=== PATIENT | female | born 1945 | race Caucasian/White ===

== ENCOUNTER → 2021-01-13 09:56 | Outpatient (CLI) | payer OTHER, SELFPAY ==
[2021-01-13 11:02] LABS: COVID19 -Nasal RAPID Negative (Negative)
== END ==
PROVIDERS: Visit Provider Physician Assistant
DX: Z01.812 Encounter for preprocedural laboratory examination (principal); Z20.822 Contact with and (suspected) exposure to COVID-19
CPT/HCPCS: 87635

== ENCOUNTER 2021-01-16 10:15 | Observation (INO) | payer OTHER, SELFPAY ==
[2021-01-15] VITALS (12 sets, daily range): BP systolic 110–160; BP diastolic 49–86; PULSE 63–84; RESP 12–79; TEMP 35.8–36.8; O2SAT 92–99; BMI 34.4
--- NOTE | 2021-01-15 13:42 | DI.RAD.S_ITS ---
PROCEDURE: XR KNEE LT 1TO2V INDICATIONS: post op films TECHNIQUE: 2 view(s) of the knee acquired. COMPARISON: None. FINDINGS: Bones: Patient is status post knee joint arthroplasty. Hardware components are in expected positions. Visualized bony structures are intact. Soft tissues: Overlying postoperative changes are noted. IMPRESSION: Expected appearance post left knee arthroplasty. Dictated by: Aliyah Rolle M.D. on 01/16/2021 at 9:51 Approved by: Aliyah Rolle M.D. on 01/16/2021 at 9:51
[2021-01-15] MEDS: PREGABALIN 75 MG CAPSULE PO (13:53)
[2021-01-15] MEDS: LACTATED RINGERS 1,000 ML 42 ML IV (13:53)
[2021-01-15] MEDS: ACETAMINOPHEN 325 MG TABLET 975 MG PO (13:53)
[2021-01-15] MEDS: CELECOXIB 200 MG CAPSULE PO (13:53)
--- NOTE | 2021-01-15 14:10 | PM.PREOP ---
Pre-operative Note COVID-19 COVID-19 status: Negative Result date/Date tested (Pos, Neg/Pending): 01/13/21 Interval Note History & Physical reviewed/Exam performed by Physician: Yes Changes to H&P: No H&P completed within 30 days and has changed as indicated here:: Plan for L TKA
[2021-01-15] MEDS: CEFAZOLIN 2 GM/100 ML FROZ.PIGGY IV ×2 (15:15→23:58)
[2021-01-15] MEDS: TRANEXAMIC ACID 1,000 MG VIAL 1000 MG INJ (15:17)
--- NOTE | 2021-01-15 15:32 | SUR.OPER ---
Supine on padded OR bed. Pillow under head, arms secured on padded armboards <90 degree abduction. Safety belt across torso. Non-operative leg secured with tape over blanket over lower leg. Operative leg positioned on foam leg ponce per surgeon. Foam padded brace at thigh of operative leg.
[2021-01-15] MEDS: SODIUM CHLORIDE IRRIG SOLUTION 250 ML, POVIDONE-IODINE SPONGE STICKS 1 APPLIC IRR (15:38)
[2021-01-15] MEDS: ROPIVACAINE 0.5% PF 5 MG/ML 20ML VIAL 60 ML INJ (15:39)
[2021-01-15] MEDS: KETOROLAC 30 MG/ML VIAL IV (15:41)
[2021-01-15] MEDS: MORPHINE 4 MG/ML INJ INJ (15:41)
--- NOTE | 2021-01-15 16:55 | PM.OP.1 ---
Operative Date/Time/Diagnoses Date of procedure: 01/15/21 Time of procedure: 16:55 Pre-op diagnosis: Left knee osteoarthritis Post-op diagnosis: same Procedure & Clinicians Procedure: Left total knee arthroplasty Same procedure as scheduled: Yes Indications: Advanced osteoarthritis of the left knee resistant to further conservative measures Surgeon: Good Garcia Clothes Ironer: Javier Gu Anesthesia Type: General and Spinal Operative Notes Findings: Left knee osteoarthritis with varus angulation non correctable on exam Closure Type: primary Specimen(s): none sent Prosthetic devices, grafts, tissues, transplants, or devices: Gil and nephew size 3 left BCS femoral component Gil and nephew size 2 left Journey tibial base plate Left size 1-2 9 mm thick Journey II BCS polyethylene 29 mm oval Amy 2 patellar button Estimated Blood Loss (mL): 200 Tourniquet time (min): 55 Procedure in detail: Patient was met in the preoperative holding area where the site and side of surgery were marked by . Informed consent had been reviewed in clinic but was also reviewed in the preoperative holding area. All last minute questions were answered. Patient was then brought back to the operating room where she received a spinal anesthetic. She was then placed supine on the operating room table and induced under general anesthesia. A nonsterile tourniquet was then placed on left thigh and left lower extremity was then prepped and draped in normal sterile fashion. A surgical time-out was performed verifying the site and side of surgery as well as the name of the patient. A an Esmarch was then used to exsanguinate the left lower extremity the tourniquet was inflated 250 mm of mercury. A longitudinal incision over the anterior aspect of the knee was made using 10. Blade. A new 10. Blade was then used to elevate medial lateral flaps. The medial parapatellar arthrotomy was then marked out and made with a 10. Blade. Hoffa's fat pad was removed this point as well as the lateral meniscus. A medial peel was then performed. The medial peel was quite extensive as she has overall varus alignment that was non correctable on exam. Whitesides line was also marked. ACL remnant was removed. The entry site for the intramedullary drill was then marked on the femur and tibia respectively. The opening drill was then used to gain access the femoral and tibial canals. Intramedullary jerome placed inside the femoral canal and the distal femoral cutting guide was placed and cut in the neutral slot. The intramedullary jerome was then placed inside the tibia and the jig was then placed on the outrigger for the intramedullary jerome. This was initially pinned in place and then varus valgus alignment was checked with the drop jerome and the 3rd pin was then placed. Tibia cut was then made taking care to preserve the MCL and the patellar tendon. The tibial cut was then removed along with the medial meniscus. Extension block was then used in a knee was able to get to full extension it with a 9 mm block. A gap retail pharmacy merchandiser was then used and the femur sized to a size 3. The drill holes for the 5 in 1 cutting block were then drilled through the gap retail pharmacy merchandiser. This was compared to Whitesides line which showed external rotation. The 5 in 1 cutting block was then placed for a size 3 femur. The 5 cuts were made sequentially. A size 3 left femur CR trial was then placed on the femur. And a size 2 tibial base plate. The knee was balanced in extension however in flexion the PCL was quite tight causing tibial base plate lift-off. At this point it was determined that we would defer to the CS to get rid of the type PCL. The trial was then removed the size left 5 femur was replaced with the BCS component. We then trialed again with a 9 mm thick polyethylene for B CS and this had excellent range of motion as well as no tibial base plate lift-off and was balanced in varus valgus from extension through flexion. The tibial base plate was then marked using floating technique. Trial was then removed the tibial base plate was then replaced on the tibia and drilled and punched. Bony fragments were then placed inside the tibial canal as well as the femoral canal. Local anesthetic was then infiltrated in the periarticular soft tissues including the back of the knee. Pulse lavage was then used to thoroughly irrigate the cut surfaces of the bone. Cement was then mixed. Cement was then finger packed onto the cut surface of the tibia as well as the keel hole. Cement was placed on the undersurface of the tibial base plate. This was then malleted into place and all excess cement was removed. Stem was then finger packed onto the cut surface of the femur with exception of the posterior condylar cut. Cement was placed on the feet of the femoral component this was malleted into place as well. All excess cement was removed. A size 9 mm thick PS trial was then placed in the was brought into full extension ankle held in internal rotation. Cement was then finger packed on the cut surface of the patella and cement was placed between the patellar pegs on the button. This was then clamped in place and excess cement was removed. At this point Betadine solution was placed into the wound the tourniquet was let down. Betadine slept for several minutes before being pulse lavage away with copious normal saline. We then allowed the cement to fully cure before ranging the knee. After final trial of range of motion we selected a size 1-2 left B CS polyethylene. We thoroughly investigated the rest the knee there was no excess cement or bony fragments. The polyethylene was then placed making sure the medial lateral locking mechanisms were well engaged. The medial parapatellar arthrotomy was then closed using 1. Vicryl in interrupted fashion followed by running Quill suture followed by 2-0 Vicryl in the subcutaneous layer followed by running 3-0 Stratafix in subcuticular followed by Dermabond and Aquacel dressing. Complications: none Post-operative Condition: stable Disposition: PACU Plan for aftercare: 24 hours post-op abx, ASA 81mg BID for 6 weeks for DVT prophylaxis, WBAT LLE
[2021-01-15] MEDS: LACTATED RINGERS 1,000 ML 100 ML IV (18:10)
[2021-01-15] MEDS: IBUPROFEN 400 MG TABLET PO ×2 (18:11→20:42)
[2021-01-15] MEDS: SIMVASTATIN 20 MG TABLET PO (20:42)
[2021-01-15] MEDS: DOCUSATE 100 MG CAPSULE PO (20:43)
[2021-01-15] MEDS: ASPIRIN EC 81 MG TABLET PO (20:43)
[2021-01-15] MEDS: OXYCODONE IR 5 MG TABLET PO ×2 (20:43→23:58)
[2021-01-15] MEDS: ACETAMINOPHEN 325 MG TABLET 650 MG PO (20:43)
[2021-01-16] MEDS: OXYCODONE IR 10 MG TABLET PO ×4 (02:45→12:21)
[2021-01-16] MEDS: LACTATED RINGERS 1,000 ML 100 ML IV (04:05)
[2021-01-16 05:21] VITALS: BP 122/70; PULSE 77; RESP 17; TEMP 36.6; O2SAT 97
--- NOTE | 2021-01-16 05:41 | PC.NURSE ---
pt alert and oriented x4. Pleasant. 1pa upto bsc with fww. Pt voiding without issues. CMS intact. Pain controlled with ordered oxycodone. Pt has no complaints
[2021-01-16] MEDS: IBUPROFEN 400 MG TABLET PO ×4 (06:07→12:20)
[2021-01-16] MEDS: CEFAZOLIN 2 GM/100 ML FROZ.PIGGY IV (06:08)
[2021-01-16 07:30] VITALS: BP 122/63; PULSE 55; RESP 14; TEMP 35.8; O2SAT 100
[2021-01-16] MEDS: ASPIRIN EC 81 MG TABLET PO (08:06)
[2021-01-16] MEDS: DOCUSATE 100 MG CAPSULE PO (08:06)
[2021-01-16] MEDS: ACETAMINOPHEN 325 MG TABLET 650 MG PO (08:07)
[2021-01-16 08:32] LABS: Hematocrit 38.2 % (36-46); Hemoglobin 12.3 g/dL (12.0-16.0)
--- NOTE | 2021-01-16 10:33 | PT.IIE ---
Current Diagnoses Unilateral primary osteoarthritis, left knee (01/16/21) Surgery Performed Operation Date: 01/15/21 13:45 Actual Procedures p Total Knee Arthroplasty(Left) - Good Garcia MD Surgical History (Last Updated 01/13/21 @ 16:08 by Tanna Adame, RN) H/O bilateral cataract extraction History of appendectomy History of arthroscopic knee surgery History of History of tonsillectomy and adenoidectomy History of total hysterectomy Medical History (Last Updated 01/13/21 @ 16:07 by Tanna Adame, RN) Bilateral knee pain Headache, migraine Macular degeneration Obesity Osteoporosis Primary osteoarthritis of left knee Physical Therapy Inpatient Evaluation/Re-Eval M1 PT/OT-IP Prior Functional Status Start: 01/16/21 09:20 Freq: NEEDED Status: Active Protocol: Document 01/16/21 10:33 DLM (Rec: 01/16/21 12:40 DLM [id number]) Medical Review Prior Functional Status Medical History Reviewed Yes Diet/Fluid Consistency Regular Communication WNL Mobility and Gait Independent with 4WW, uses walker to manage her bilateral knee pain, has a fWW at home but it is too tall for her ( got it from a friend) Activities of Daily Living and IADL's Independent, walk- in shower which she uses in standing, okay getting off standard toilet, has taller bed, built in shower seat is very small and low so she does not plan to use them Social History Household Members spouse Living Arrangements House Number of Floors (Floors) One Floor Number of Stairs To Enter/Railing? 4 with bilateral rails, uses step-to pattern before surgery due to knee pain Home Environment Standard Height Toilet,Walk in Shower,Built-In Shower Seat Home Equipment Four Wheel Walker,Straight Cane Employment Status Retired M2 PT-IP Current Condition Start: 01/16/21 09:20 Freq: NEEDED Status: Active Protocol: Document 01/16/21 10:33 DLM (Rec: 01/16/21 12:40 DLM [id number]) Physical Therapy Current Condition Current Condition Evaluation Date 01/16/21 Treatment Diagnosis left TKA, impaired gait Onset Date 01/15/21 Weight Bearing Status Weight Bearing Status Weight Bear as Tolerated M3 PT-IP Subjective Start: 01/16/21 09:20 Freq: NEEDED Status: Active Protocol: Document 01/16/21 10:33 DLM (Rec: 01/16/21 12:40 [facility] [id number]) Subjective Physical Therapy Visit Type Type Initial Evaluation Visit Start Time 09:45 Visit Stop Time 10:33 Total Visit Minutes 48 Number of TABLE HAND Visits 0 Physical Therapy Visit Comments Patient Comments she likes the FWW but is not sure where to get one for home Patient Goals she wants to discharge home Therapy Pain Assessment Pain When Pain Assessed During Mobility Pain Present Pain Present Pain Reported Location left knee Intensity 5 Scale Used Numeric (0 - 10) Description Aching Pain Behaviors Facial Grimacing,Guarding Pain Management Techniques Apply Cold,Elevation M4 PT-IP Mobility and Gait Start: 01/16/21 09:20 Freq: NEEDED Status: Active Protocol: Document 01/16/21 10:33 DLM (Rec: 01/16/21 12:40 [facility] [id number]) PT-Bed Mobility Assessment Supine to Sit Supine to Sit Standby Assistance Scooting Scooting to Edge of Bed Independent PT-Transfer Assessment Sit to and From Stand Sit to and from Stand Standby Assistance Equipment Transfer Assistive Device Gait Belt,Front Wheeled Walker Transfers Transfer Destination Chair Transfer Technique Stand Step Pivot Transfer Ability Level of Assist Standby Assistance,Use of Upper Extremities Comments Mobility Comments pt up to recliner Gait Assessment Gait Gait Assistance Required: Standby Assistance Distance (Feet) 20 Assistive Devices Assistive Device Gait Belt,Front Wheeled Walker Gait Deviations General Gait Pattern Antalgic Factors Limiting Gait Function Factors Limiting Gait Function Decreased Activity Tolerance, Decreased Strength,Limited Range of Motion,Pain Comments Gait Comments two trials of gait with seated rest breaks between them, educated pt in safe post-op gait pattern Stair Climbing Assessment Comments Stair Climbing Comments verbally reviewed stair technique PT-Balance Assessment Sitting Balance and Reactions Static Sitting Balance Ability Normal Dynamic Sitting Balance Ability Normal Standing Balance and Reactions Static Standing Balance Ability Good Dynamic Standing Balance Ability Good Device Used FWW M5 PT-IP Objective Assessments Start: 01/16/21 09:20 Freq: NEEDED Status: Active Protocol: Document 01/16/21 10:33 DLM (Rec: 01/16/21 12:40 [facility] [id number]) Orientation Orientation/Cognition Level of Alertness Alert Orientation Name,Age,Birthday,Month,Date, Year,Day of Week,Place, Situation Language Function Ability No Deficits Noted Safety Awareness Understands Safety Issues Memory Description No Deficits Noted Gross Range of Motion Upper Extremity ROM Assessment Within Functional Limits Lower Extremity ROM Assessment Left Impaired Impairments knee 0-80 degrees with pain, hx of pain in right knee but functional at this time Strength Upper Extremity Strength Assessment Within Functional Limits Lower Extremity Strength Assessment Left Impaired Hip SLR 2+/5 Knee 3-/5 Ankle DF 5/5 Comments Strength Comments pain left knee post-op, shows good quad set on left, poor tolerance for heel slides today, tolerated knee flexion better seated Coordination Assessment Gross Coordination Gross Coordination WNL Sensation Assessment Sensation Gross Sensation WNL Comments Sensation Comments nitin bandage on left knee so incisional area not tested Muscle Tone Muscle Tone WNL Yes M6 PT-IP Treatment Start: 01/16/21 09:20 Freq: NEEDED Status: Active Protocol: Document 01/16/21 10:33 DLM (Rec: 01/16/21 12:40 DLM [id number]) Physical Therapy Treatment Exercises Exercises Ankle Pumps,Quad Sets,Heel Slides,Seated Knee Flexion/ Extension Education Education Provided Post-Op Packet,Safety Equipment Issued Equipment Type and Company pt has her 4WW at the [facility] M7 PT-IP Assessment and Plan Start: 01/16/21 09:20 Freq: NEEDED Status: Active Protocol: Document 01/16/21 10:33 DLM (Rec: 01/16/21 12:40 DLM [id number]) PT Summary Assessment and Plan Potential Rehabilitation Potential Good Status of Condition at Evaluation Evolving Summary Impairments Pain,ROM,Strength,Balance,Bed Mobility,Transfers,Gait, Activity Tolerance Assessment Summary Jane is post-op day one of left TKA. She tolerated activity well with no light- headedness and no nausea. She is up to recliner and ambulated in the room She has 3-4 steps to enter her house. She reports her Spouse will be able to assist her at discharge. She anticipates she will need a fWW for home use post-op. Will plan one more visit after lunch with possible discharge home this afternoon. Goals Bed Mobility Goal Independent Transfer Goal Independent,Front Wheeled Walker Gait Goal Independent,Front Wheel Walker Gait Distance 100 feet Other Goals Up and down 3-4 steps with bilateral rails and SBA Days to Meet Goals 1 Frequency of Treatment Frequency Of Treatment Twice a Day Treatment Plan Physical Therapy Treatment Plan Bed Mobility Training,Transfer Training,Gait Training, Therapeutic Exercise,Balance Retraining,Post Op Education, Discharge Planning,Hot or Cold Pack,Neuromuscular Re-ed Recommendations To Nursing Amount of Assist Needed Standby Assistance Discharge Recommendations PT Discharge Recommendations Home with Assistance, Outpatient PT Other Discharge Recommendations she has out-pt PT scheduled after discharge to start in about a week Transportation Needs at Discharge Private Vehicle
[2021-01-16 11:15] VITALS: BP 140/72; PULSE 58; RESP 16; TEMP 36; O2SAT 99
--- NOTE | 2021-01-16 12:01 | PC.NURSE ---
Patient moving well with physical therapy, she will do stairs later and then be discharged home if all goes well. She has an aquacel with nitin wrap in place, cms wnl and ppx2.
--- NOTE | 2021-01-16 12:02 | PM.DS.1 ---
History of Present Illness History of Present Illness Date Patient Seen: 01/16/21 Time Patient Seen: 12:03 Chief complaint: LEFT TKA *OPB* Narrative: Please refer to previously documented HPI and chart. Discharge Providers Provider Date of admission: 01/16/21 10:15 Discharge Date: 01/16/21 Primary care physician: Bonnie Burkett MD Consults: 01/13/21 16:33 Consult to Pastoral Services Routine Comment: Mumtaz 01/15/21 13:42 Consult to Anesthesiology Routine Comment: Consulting Provider: Anesthesiologist Reason for consultation: Regional block for post operative pain control 01/15/21 17:59 Consult to Discharge Planning Routine Comment: Consult to Physical Therapy Evaluate & Treat Comment: Physician Instructions: postop TKA protocol Consult to Respiratory Therapy Evaluate & Treat Comment: Physician Instructions: Evaluate and treat Discharge provider: Javier Gu PA-C Summary Hospital Course Discharge Diagnosis: Left knee osteoarthritis Status post left knee total arthroplasty Hospital Course: 76-year-old female with the above-listed diagnoses was consented for the procedure above as indicated and presented to the OR undergoing said procedure without difficulty or complication then admitted to the hospital for rehabilitation having convalesced appropriately was stable for discharge safely and verbalized understanding postoperative care instructions as well as agreed to plan for follow-up evaluation and care as needed. Status at Discharge Cognitive/behavioral status at discharge: oriented Functional status at discharge: uses cane/walker Overall status at discharge: patient is progressing back to baseline Time Spent with Patient Time spent: Less than 30 minutes Exam Vital Signs (past 8 hours): - 01/16/21 05:21 01/16/21 07:30 01/16/21 11:15 Temperature 97.8 F 96.4 F L 96.8 F L Pulse Rate 77 55 L 58 L Respiratory Rate 17 14 16 Blood Pressure 122/70 122/63 140/72 Pulse Oximetry 97 100 99 Oxygen Delivery Method Room Air Oxygen Flow Rate 0 Narrative Exam Narrative: This is a very pleasant 76-year-old female with the above-listed diagnoses was consented for the procedure above as indicated and presented to the OR undergoing said procedure without difficulty or complication then admitted to the hospital for rehabilitation having convalesced appropriately was stable for discharge safely and verbalized understanding postoperative care instructions as well as agreed to plan for follow-up evaluation and care as needed. Objective Labs Result Diagrams: 01/16/21 08:20 Labs: Laboratory Results - last 24 hr 01/16/21 08:20 Hgb 12.3 Hct 38.2 PFSH Medical History (Updated 01/13/21 @ 16:07 by Tanna Adame RN) Bilateral knee pain Headache, migraine Macular degeneration Obesity Osteoporosis Primary osteoarthritis of left knee Surgical History (Updated 01/13/21 @ 16:08 by Tanna Adame RN) H/O bilateral cataract extraction History of appendectomy History of arthroscopic knee surgery History of History of tonsillectomy and adenoidectomy History of total hysterectomy Social History household members: spouse Smoking Status: Former smoker alcohol intake: current Discharge Assessment & Plan Assessment and Plan Assessment: Left knee osteoarthritis Status post left knee total arthroplasty Plan of Treatment: Discharge home today. Total knee care protocols applied. Follow-up in 2 weeks for re-evaluation or sooner as needed. Discharge Plan Discharge Plan Patient Disposition: Home Discharge orders & Medications Prescriptions: New acetaminophen 325 mg Tablet 650 mg PO TID PRN (Reason: Breakthrough Pain, Mild) Qty: 60 RF: 0 aspirin 81 mg Tablet,Delayed Release (Dr/Ec) 81 mg PO BID Qty: 90 RF: 0 ibuprofen 400 mg Tablet 400 mg PO Q4HR PRN (Reason: Breakthrough Pain, Mild) Qty: 60 RF: 0 docusate sodium [DOK] 100 mg Capsule 100 mg PO BID PRN (Reason: Constipation) Qty: 30 RF: 0 oxycodone 5 mg Tablet 5 mg PO Q4-5H PRN (Reason: Pain, Moderate (4-6)) Qty: 60 RF: 0 Continued simvastatin 20 mg Tablet 20 mg PO BEDTIME RF: 0 oxycodone 5 mg Tablet 5 - 10 mg PO Q4-6H PRN (Reason: Pain) RF: 0 PreserVision AREDS [id number] Capsule 1 cap PO QPM RF: 0 risedronate 150 mg Tablet 150 mg PO QMONTH RF: 0 Discontinued ibuprofen 200 mg Tablet 800 mg PO BEDTIME RF: 0 Follow up/Referrals: Bonnie Burkett MD [Primary Care Provider] - Diet/Activity/Treatments Diet: Diet as Tolerated Activity: Weight-bearing as tolerated on left lower extremity with a front wheel walker and fall precautions. Cold/Heat Therapy: Ice 20 minutes/hour as tolerated and needed. Skin/Wound/Dressing Care Report to your healthcare provider any signs of infection, such as:: chills, fever, night sweats, increased pain, unusual drainage and unusual redness Dressing: Keep dressing clean, dry and intact. Call as needed if soiled or saturated. Visit Report/Discharge Packet Instructions: DI for Knee Replacement, DI for Prescription Opioid Use Stand Alone Forms: Surgery Discharge Discharge Data Primary Care Provider: Bonnie Burkett Attending Provider: Good Garcia VTE Deep Vein Thrombosis/Pulmonary Embolism Present on Admission: No
--- NOTE | 2021-01-16 14:24 | CM.DANOTE ---
Addendum entered by Altagracia Barrera LPN 01/16/21 14:30: Met now with pt and her ; introduced self and role. Pt confirms she passed the stair training and is going home as soon as KATYA Blue, at bedside, completed the d/c instruction paperwork. P: home as planned. Original Note: Discharge Planning/Care Management DCP: assessment: case received and d/c order noted. Pt is her for a planned L TKA, admitted yesterday. Admission status [facility] to OBS. Payer: [facility]. PT is seeing pt and was planning another session today on stairs. Will check in with pt now. CM Discharge Assessment Start: 01/16/21 14:23 Freq: Status: Active Protocol: Document 01/16/21 14:23 ITV (Rec: 01/16/21 14:24 ITV [id number]) Discharge Planning Assessment Advance Directives? No History Provided By Medical Record Prior Living Arrangements House Household Members spouse Pre-Anesthesia Assessment Start: 01/13/21 09:18 Freq: Status: Active Protocol: Document 01/13/21 09:18 VLJ (Rec: 01/13/21 09:29 VLJ [id number]) Pre-Anesthesia Assessment Patient Information Reviewed Via Chart Review,Phone Assessment Assessment Completed With Patient Diagnostic Results BMP/CMP,CBC,EKG Comment A1c Primary Care Provider Bonnie Burkett Medical Clearance Received Yes Specialist Seen Orthopedist Primary Language Turkmen Lawyers Required No Comment Speaks Tajik Height 144.78 cm Hearing Ability Hard of Hearing Visual Impairment Partially Limited Visual Assist Glasses Barriers to Learning Auditory,Visual Comment reading glasses Hx Anesthesia Reactions No Hx Family Anesthesia Reaction No Hx Malignant Hyperthermia No Hx Blood Transfusions No Hx Blood Transfusion Reaction No Anesthesia Review Requested No Bond Manager No alcohol intake current alcohol intake frequency 0-2 drinks per day Smoking Status Former smoker Tobacco type cigarettes how long ago did patient quit smoking 58 years ago Substance Use Type does not use Pain Present Denied Pain Comment Knees Musculoskeletal Symptoms Abnormal Gait,Difficulty Walking,Joint Pain History of Falling (Recent or History of Yes ) Comment impaired balance r/t pain Patient is completely paralyzed or No completely immobile Ambulatory Aid None/bed rest/nurse assist Comment denies cane use Is patient on oxygen? No Does patient have OLIVARES/SOB No Hx Sleep Apnea No CPAP/BIPAP use not prescribed Currently Taking a Beta Lul No Can You Climb a Flight of Stairs Without Yes SOB Hx Chest Pain No Hx SOB No Hx Syncope or Dizziness No Anti-Coagulant Therapy No Has a Dairy Technician No Cardiac Testing No Hx Pacemaker/ICD No Pacemaker Rep Required? No Cardiac Clearance Received Not Applicable Diet Type At Home Regular dysphagia No Gastrointestinal Symptoms Reflux Bladder Pattern Incontinent, Stress Urinary Catheter Present No Hx Urinary Self Catheterization No Comment Wears a pad Diabetes No HgbA1C 5.5 Date 12/18/20 Patient No Lactating No Hx Drug Resistant Organism No Presence of External or Internal Medical Yes: Bilateral IOLs Devices Have you had any close contact with No someone diagnosed with COVID-19? Are you experiencing any of these No symptoms symptoms? Evaluation/Screening for possible COVID- Yes 19 infection completed? Comment Covid negative 01/13/21 IH Marital Status Lives With spouse Prior Living Arrangements House Number of Floors (Floors) One Floor Number of Stairs To Enter/Railing? 3-4 stairs into house w/rails Support System Family,Friend(s),Spouse Does the Patient Have Assistance After Yes Surgery Patient Discharge Plan Description Return Home Feels Safe in Current Environment Yes Been Physically Hurt or Threatened By a No Person in Current Environment Do you have thoughts of harming yourself None or others? Are you currently considering suicide? No Do you have a plan to hurt yourself or No Plan others? Do You Have Any Spiritual Beliefs That Yes May Affect Your HC Choices? Do You Have Any Cultural Practices That No May Affect Your HC Choices? Spiritual Referral In-House Oil Painter Comment Episcopal (either way) Who Can We Speak to About Patient's Care Friends & Family Identifying Code for Release of Patient declined Information Health Care Proxy/Next of Kin - (Angel) Addy Webster Health Care Proxy Emergency Contact Name - Addy Webster (Roland) Emergency Contact Advance Directives? No Power of Biostatistics Professor No PAC Instructions Assistance for 24 hours post- op,Diabetes instructions,Do not shave/clip surgical site, Durable medical equipment, Medications to take/avoid, Nasal antibiotic,No ETOH/ petroleum product on skin DOS, NPO,Post-op transportation,Pre -op antibiotic,Pre-surgical wash,Sensory aids,Sturdy shoes /comfortable clothes,Do not bring valuables and remove jewelry
--- NOTE | 2021-01-16 14:28 | PT.IPTN ---
Current Diagnoses Unilateral primary osteoarthritis, left knee (01/16/21) Surgery Performed Operation Date: 01/15/21 13:45 Actual Procedures p Total Knee Arthroplasty(Left) - Good Garcia MD Physical Therapy Treatment Note M2 PT-IP Current Condition Start: 01/16/21 09:20 Freq: NEEDED Status: Active Protocol: Document 01/16/21 10:33 DLM (Rec: 01/16/21 12:40 DLM [id number]) Physical Therapy Current Condition Current Condition Evaluation Date 01/16/21 Treatment Diagnosis left TKA, impaired gait Onset Date 01/15/21 Weight Bearing Status Weight Bearing Status Weight Bear as Tolerated M3 PT-IP Subjective Start: 01/16/21 09:20 Freq: NEEDED Status: Active Protocol: Document 01/16/21 14:28 DLM (Rec: 01/16/21 14:48 DLM [id number]) Subjective Physical Therapy Visit Type Type Treatment Note Visit Start Time 13:30 Visit Stop Time 14:28 Total Visit Minutes 58 Number of POLITICAL CARTOONIST Visits 0 Physical Therapy Visit Comments Patient Comments She feels like she is okay to go home today Patient Goals discharge home with Spouse to help Therapy Pain Assessment Pain When Pain Assessed During Mobility Pain Present Pain Present Pain Reported Location left knee Intensity 6 Scale Used Numeric (0 - 10) Description Aching Pain Behaviors Facial Grimacing,Guarding Pain Management Techniques Apply Cold,Elevation M4 PT-IP Mobility and Gait Start: 01/16/21 09:20 Freq: NEEDED Status: Active Protocol: Document 01/16/21 14:28 DLM (Rec: 01/16/21 14:48 DLM [id number]) PT-Bed Mobility Assessment Sit to Supine Sit to Supine Independent Scooting Scooting to Edge of Bed Independent Scooting Up and Down in Bed Independent PT-Transfer Assessment Sit to and From Stand Sit to and from Stand Independent,Use of Upper Extremities Equipment Transfer Assistive Device Gait Belt,Front Wheeled Walker Transfers Transfer Destination Bed,Chair Transfer Technique Stand Step Pivot Transfer Ability Level of Assist Independent,Use of Upper Extremities Gait Assessment Gait Gait Assistance Required: Independent Distance (Feet) 25 Able to Maintain Weight Bearing Status Yes During Gait Assistive Devices Assistive Device Gait Belt,Front Wheeled Walker Gait Deviations General Gait Pattern Antalgic Factors Limiting Gait Function Factors Limiting Gait Function Decreased Activity Tolerance, Decreased Strength,Limited Range of Motion,Pain Stair Climbing Assessment Evaluation Level of Assist On Stairs Standby Assistance Devices Stair Climbing Assistive Devices Left Railing,Right Railing Technique/Endurance Stair Climbing Direction Ascend and Descend Stair Climbing Technique Step to Step Number of Steps Climbed 3 Stair Climbing Set # Repetitions (reps) 1 Comments Stair Climbing Comments pt prefers to go down the steps sideways holding only one rail with both hands PT-Balance Assessment Sitting Balance and Reactions Static Sitting Balance Ability Normal Dynamic Sitting Balance Ability Normal M5 PT-IP Objective Assessments Start: 01/16/21 09:20 Freq: NEEDED Status: Active Protocol: Document 01/16/21 10:33 DLM (Rec: 01/16/21 12:40 DLM [id number]) Orientation Orientation/Cognition Level of Alertness Alert Orientation Name,Age,Birthday,Month,Date, Year,Day of Week,Place, Situation Language Function Ability No Deficits Noted Safety Awareness Understands Safety Issues Memory Description No Deficits Noted Gross Range of Motion Upper Extremity ROM Assessment Within Functional Limits Lower Extremity ROM Assessment Left Impaired Impairments knee 0-80 degrees with pain, hx of pain in right knee but functional at this time Strength Upper Extremity Strength Assessment Within Functional Limits Lower Extremity Strength Assessment Left Impaired Hip SLR 2+/5 Knee 3-/5 Ankle DF 5/5 Comments Strength Comments pain left knee post-op, shows good quad set on left, poor tolerance for heel slides today, tolerated knee flexion better seated Coordination Assessment Gross Coordination Gross Coordination WNL Sensation Assessment Sensation Gross Sensation WNL Comments Sensation Comments nitin bandage on left knee so incisional area not tested Muscle Tone Muscle Tone WNL Yes M6 PT-IP Treatment Start: 01/16/21 09:20 Freq: NEEDED Status: Active Protocol: Document 01/16/21 14:28 DLM (Rec: 01/16/21 14:48 DLM [id number]) Physical Therapy Treatment Exercises Exercises Ankle Pumps,Quad Sets,Heel Slides,Straight Leg Raises, Short Arc Quads,Passive Knee Extension Hang,Seated Knee Flexion/Extension Education Education Provided Post-Op Packet,Safety Equipment Issued Equipment Type and Company [employer], youth front wheeled walker Other Treatments Other Treatment Performed caregiver training with her during this visit M7 PT-IP Assessment and Plan Start: 01/16/21 09:20 Freq: NEEDED Status: Active Protocol: Document 01/16/21 14:28 DLM (Rec: 01/16/21 14:48 BRYAN [id number]) PT Summary Assessment and Plan Summary Impairments Pain,ROM,Strength,Activity Tolerance Progress Towards Goals Progressing Toward Goals Assessment Summary Jane demonstrates safe gait pattern with the FWW. She is having more pain this afternoon than this morning. She was able to go up and down 3 steps with SBA and use of rails. Her is able to assist her at home as needed. She demonstrates a good understanding of written HEP. Issued a youth FWW for home use. She is cleared by physical therapy to discharge home today when medically cleared. Goals Bed Mobility Goal Independent Transfer Goal Independent,Front Wheeled Walker Gait Goal Independent,Front Wheel Walker Gait Distance 100 feet Other Goals Up and down 3-4 steps with bilateral rails and SBA Days to Meet Goals 1 Frequency of Treatment Frequency Of Treatment Twice a Day Treatment Plan Physical Therapy Treatment Plan Bed Mobility Training,Transfer Training,Gait Training, Therapeutic Exercise,Balance Retraining,Post Op Education, Discharge Planning,Hot or Cold Pack,Neuromuscular Re-ed Recommendations To Nursing Amount of Assist Needed Standby Assistance Discharge Recommendations PT Discharge Recommendations Home with Assistance, Outpatient PT Other Discharge Recommendations she has out-pt PT scheduled after discharge to start in about a week Transportation Needs at Discharge Private Vehicle
== END 2021-01-16 15:04 | disposition home or self-care (01) ==
LOC: OR 11:41 → AC 11:41
PROVIDERS: Admitting Provider Physician Assistant Medical; PCP Family Medicine; Referring Provider Orthopaedic Surgery; Visit Provider Orthopaedic Surgery Adult Reconstructive Orthopaedic Surgery
PROC: 0SRD0JZ Replacement of Left Knee Joint with Synthetic Substitute, Open Approach (ICD-10-PCS; CPT 27447; principal; 2021-01-15 13:45)
DX: M17.12 Unilateral primary osteoarthritis, left knee (principal); E66.9 Obesity, unspecified; M81.0 Age-related osteoporosis without current pathological fracture; E78.5 Hyperlipidemia, unspecified; G43.909 Migraine, unspecified, not intractable, without status migrainosus; Z68.37 Body mass index [BMI] 37.0-37.9, adult
CPT/HCPCS: 27447; 36415; 73560; 85014; 85018; 97110; 97116; 97162; 97530; C1776; G0378; J0690; J1100; J1885; J2250; J2270; J2405; J2704; J3010

== ENCOUNTER → 2022-10-06 11:03 | Outpatient (CLI) | payer OTHER, SELFPAY ==
[2021-01-15 18:22] VITALS: BMI 34.4
[2022-10-06 11:53] LABS: COVID19 -Nasal RAPID Negative (Negative)
== END ==
PROVIDERS: PCP Family Medicine; Referring Provider Orthopaedic Surgery; Visit Provider Orthopaedic Surgery
DX: Z20.822 Contact with and (suspected) exposure to COVID-19 (principal)
CPT/HCPCS: 87635; C9803

== ENCOUNTER 2022-10-07 06:11 | Day surgery (SDC) | payer OTHER, SELFPAY ==
[2021-01-15 18:22] VITALS: BMI 34.4
[2022-09-23 13:30] VITALS: BMI 35.5
[2022-10-07] VITALS (11 sets, daily range): BP systolic 98–169; BP diastolic 37–77; PULSE 54–72; RESP 11–20; TEMP 35.7–36.8; O2SAT 93–100; BMI 35.5
--- NOTE | 2022-10-07 06:00 | DI.RAD.S_ITS ---
PROCEDURE: XR KNEE RT 1TO2V INDICATIONS: TKA TECHNIQUE: 2 view(s) of the knee acquired. COMPARISON: [facility], CR, XR KNEE LT 1TO2V, 01/15/2021, 17:20. FINDINGS: Bones: Patient is status post knee joint arthroplasty. Hardware components are in expected positions. Visualized bony structures are intact. Soft tissues: Overlying postoperative changes are noted. IMPRESSION: Postop changes from right total knee arthroplasty with anatomic right knee alignment. Dictated by: Manuel Napoles M.D. on 10/07/2022 at 10:33 Approved by: Manuel Napoles M.D. on 10/07/2022 at 10:33
[2022-10-07] MEDS: ACETAMINOPHEN 325 MG TABLET 975 MG PO (06:58)
[2022-10-07] MEDS: CELECOXIB 200 MG CAPSULE PO (06:58)
[2022-10-07] MEDS: LACTATED RINGERS 1,000 ML 84 ML IV ×2 (07:09→10:00)
--- NOTE | 2022-10-07 07:21 | PM.PREOP ---
Pre-operative Note COVID-19 COVID-19 status: Negative Result date/Date tested (Pos, Neg/Pending): 10/06/22 Interval Note History & Physical reviewed/Exam performed by Physician: Yes Changes to H&P: No
--- NOTE | 2022-10-07 07:41 | SUR.OPER ---
Supine on padded OR bed. Pillow under head, arms secured on padded armboards <90 degree abduction. Safety belt across torso. Non-operative leg secured with tape over blanket over lower leg. Operative leg secured in DeMayo positioner. Foam padded brace at thigh of operative leg.
[2022-10-07] MEDS: CEFAZOLIN 2 GM/100 ML PREMIX 100 ML IV ×2 (08:15→16:32)
[2022-10-07] MEDS: TRANEXAMIC ACID 1,000 MG VIAL 2000 MG INJ ×2 (08:18→09:15)
[2022-10-07] MEDS: BUPIVACAINE 0.5% W/ EPI (PF) 30 ML VIAL INJ (08:20)
[2022-10-07] MEDS: MORPHINE 4 MG/ML INJ INJ (08:20)
[2022-10-07] MEDS: BUPIVACAINE LIPOSOME 266 MG/20 ML VIAL INJ (08:20)
--- NOTE | 2022-10-07 09:40 | PM.OP.1 ---
Operative Date/Time/Diagnoses Date of procedure: 10/07/22 Time of procedure: 09:40 Pre-op diagnosis: Right knee osteoarthritis Post-op diagnosis: same Procedure & Clinicians Procedure: Right total knee replacement Same procedure as scheduled: Yes Indications: The patient has had progressively worsening right knee pain with radiographic changes consistent with arthritis. Non-operative management has failed and the patient has requested total knee replacement. The risks, benefits and alternatives to surgery were discussed with the patient prior to proceeding. Risks discussed included, but were not limited to, failure to relieve pain, stiffness, infection, nerve damage, deep venous thrombosis, pulmonary embolism, stroke, coma, heart attack, permanent paralysis and , as well as the potential need for eventual revision of the prosthetic. Surgeon: Festus Evans Aircraft Inspector: Kristen Bro Yes if Unassisted: No Anesthesia Type: General, Spinal and Local Operative Notes Findings: Severe medial and patellofemoral osteoarthritis with relative preservation of the lateral compartment. Closure Type: primary Specimen(s): none sent Prosthetic devices, grafts, tissues, transplants, or devices: Implants used in this procedure were manufactured by the [employer] and [employer] and included the BCS II Journey total knee replacement with a size 3 right cobalt chromium femur, a size 2 non porous tibial base plate, an 11 mm cross-linked polyethylene tibial insert and a 29 mm oval Amy II patella. Applied: implant(s) Estimated Blood Loss (mL): 50 Blood products transfused: none Tourniquet time (min): 57 Procedure in detail: The patient was seen in the pre-operative area, where the patient identified the right knee as the operative site and this was marked with my initials. The patient received pre-operative antibiotics, and was taken to the operating room and placed on the operative table in the supine position. After satisfactory anesthesia, a radio time sales supervisor out was performed. The right leg was encircled with a tourniquet about the proximal thigh, and the leg was prepared from the toes to the tourniquet with ChloroPrep in the usual fashion and draped through sterile drapes. The leg was elevated and exsanguinated with Eschmark bandage and the tourniquet inflated to 250 mmHg pressure. The knee was approached through an approximately 18 cm incision centered over the patella and carried into the knee through a medial parapatellar arthrotomy. The anterior osteophytes and soft tissues were removed. The rotational landmarks of Doretha's line and the transepicondylar axis were marked on the femur with electrocautery, and intramedullary guide holes for the femur and tibia were created. The distal femoral cut was made in 6 degrees of valgus using the intramedullary guide at the primary cut setting. The proximal tibial cut was then made using the intramedullary guide, taking 9 mm of bone off the less involved side. The extension gap was checked and the rotation of the femoral component confirmed with the gap balancing system. The anterior, posterior and chamfer cuts were then made. The posterior osteophytes and soft tissues were then removed. The posterior capsule was injected with part of a mixture of 60 ml 0.25% Marcaine mixed with 20 ml Exparel and 4 mg of morphine for post-operative pain control. The remainder of this mixture was injected into the capsule and subcutaneous tissues during cement curing. The tibia was prepared with the rotation set by an extra medullary guide. Trial tibial and femoral components were then placed and the intercondylar notch cut through the femoral trial. Range of motion was 0-135 degrees, with good stability throughout the range. The patella was then cut to accommodate the patellar prosthetic. There was no need for a lateral release. The trials were then removed, and the femoral hole plugged with a bone plug. The bone was prepared with pulsatile lavage, and dried with a sponge. Cement was applied and the final prosthetics placed. Excess cement was removed during and after cement curing. After confirming there was no extruded cement posteriorly, the final tibial insert was placed. The knee was copiously irrigated and the tourniquet deflated. Hemostasis was obtained. The capsule was closed with interrupted # 2 polyester suture. The subcutaneous layer was closed with 3-0 Vicryl, and the skin with a running 3-0 V-Lock suture and Dermabond. An Aquacel Ag dressing was applied and the patient was taken to recovery having tolerated the procedure well. The services of a skilled administrative services assistant were required during this procedure to provide positioning, exposure and retraction to protect vital structures. Without the services of Ms. Pagan the procedure could not have been completed in a safe, expedient fashion. Complications: none Post-operative Condition: stable Disposition: PACU Plan for aftercare: The patient will be maintained on a standard total knee replacement protocol with weight bearing as tolerated. The patient will receive aspirin and sequential compression devices for DVT prophylaxis. The patient will be discharged home when safe for the home environment.
--- NOTE | 2022-10-07 10:07 | SUR.PHASEI ---
Unable to give report to receiving inpatient unit; no room assigned; no nurse assigned. Patient remains stable and pain-free at this time.
[2022-10-07] MEDS: HYDROMORPHONE 0.5 MG INJ 0.2 MG IV (11:28)
[2022-10-07] MEDS: LACTATED RINGERS 1,000 ML 100 ML IV (11:31)
[2022-10-07] MEDS: OXYCODONE IR 10 MG TABLET PO ×3 (11:35→23:17)
[2022-10-07] MEDS: ACETAMINOPHEN 325 MG TABLET 650 MG PO ×2 (11:35→16:32)
[2022-10-07] MEDS: IBUPROFEN 400 MG TABLET PO ×3 (12:04→20:13)
--- NOTE | 2022-10-07 12:15 | PC.NURSE ---
1042 -Pt to room from PACU. Alert and oriented. Vital signs stable. Denies pain. Inc of a small amount urine. Repositioned and linen changed. At approximately 1100 pain began to increase. 0 to 6 of 10 rapidly. Called pharmacy to verify orders. Pain now rated 7, pursed lipped breathing, gripping side rails. Dilaudid given. Snack provided, then given APAP and percolone. 1205. Pain remains 6 of 10, scheduled IBU given. Oriented to room and routine. Call light in reach. Bed alarm on.
--- NOTE | 2022-10-07 13:40 | PT.IIE ---
Current Diagnoses Unilateral primary osteoarthritis, right knee (10/07/22) Surgery Performed Operation Date: 10/07/22 07:45 Actual Procedures p Total Knee Arthroplasty(Right) - Festus Evans MD Surgical History (Last Updated 09/23/22 @ 13:36 by Liseth Garcia, RN) H/O bilateral cataract extraction History of appendectomy History of arthroscopic knee surgery History of History of tonsillectomy and adenoidectomy History of total hysterectomy History of total left knee replacement (01/15/21) Medical History (Last Updated 09/23/22 @ 14:21 by Liseth Garcia, KATYA) Bilateral knee pain COVID-19 virus infection (08/28/22) Headache, migraine Macular degeneration Obesity Osteoporosis Primary osteoarthritis of left knee Physical Therapy Inpatient Evaluation/Re-Eval M1 PT/OT-IP Prior Functional Status Start: 10/07/22 15:40 Freq: NEEDED Status: Active Protocol: Document 10/07/22 13:40 AB (Rec: 10/07/22 15:55 AB [id number]) Medical Review Prior Functional Status Medical History Reviewed Yes Communication able to make needs known Mobility and Gait pt stated that she is independent with all mobilities and ambulation without AD but has been using a FWW for the last 6 weeks due to knee pain Social History Household Members spouse Living Arrangements House Number of Floors (Floors) One Floor Number of Stairs To Enter/Railing? 3 steps B rails to enter the house Home Environment Standard Height Toilet,Walk in Shower Home Equipment Front Wheel Walker,Four Wheel Walker,Straight Cane,Hand Held Shower,Grab Bars In Shower Additional Social History Comment pt plans to sleep on her recliner chair M2 PT-IP Current Condition Start: 10/07/22 15:40 Freq: NEEDED Status: Active Protocol: Document 10/07/22 13:40 AB (Rec: 10/07/22 15:55 AB [id number]) Physical Therapy Current Condition Current Condition Evaluation Date 10/07/22 Treatment Diagnosis s/p R TKA; difficulty in walking Onset Date 10/07/22 M3 PT-IP Subjective Start: 10/07/22 15:40 Freq: NEEDED Status: Active Protocol: Document 10/07/22 13:40 AB (Rec: 10/07/22 15:55 AB [email or web address]) Subjective Physical Therapy Visit Type Type Initial Evaluation Visit Start Time 13:40 Visit Stop Time 14:35 Total Visit Minutes 55 Number of JOSS HOUSE KEEPER Visits 0 Physical Therapy Visit Comments Patient Comments requesting to use the toilet Therapy Pain Assessment Pain When Pain Assessed At Rest Pain Present Pain Present Pain Reported Location Right Knee Intensity 4 Scale Used increases to 5/10 with mobility Pain Management Techniques Apply Cold,Distraction, Modification of Treatment,Re- positioning,Timing of Activity with Medications M4 PT-IP Mobility and Gait Start: 10/07/22 15:40 Freq: NEEDED Status: Active Protocol: Document 10/07/22 13:40 AB (Rec: 10/07/22 15:55 AB [id number]) PT-Bed Mobility Assessment Supine to Sit Supine to Sit Maximum Assistance,1 Person Assistance PT-Transfer Assessment Sit to and From Stand Sit to and from Stand Moderate Assistance,1 Person Assistance,Use of Upper Extremities Equipment Transfer Assistive Device Gait Belt,Front Wheeled Walker Orthotic/Prosthetic Devices or Brace: No Transfers Transfer Destination Toilet Transfer Technique ambulated Transfer Ability Level of Assist Minimal Assistance,Moderate Assistance,1 Person Assistance ,Use of Upper Extremities Comments Mobility Comments pt completed supine to sit max A and max cues. pt stated that she plans to use her recliner chair to sleep on. pt able to sit on EOB SBA. completed sit to stand mod A and cued for R quads activation. pt completed ambulated towards the toilet using FWW mod A and cues. completed sit to stand from the toilet mod A. pt ambulated towards the sink using FWW min A to mod A and was able to maintain standing leaning against the sink CGA while completing handwashing. pt ambulated more in room using FWW ~ 30 ft min A. pt then ambulated to the chair using fWW min A. agreed to sit up on the chair and positioned. call light and table placed within reach. caregiver training set up for tomorrow at 9am with pt and spouse. Gait Assessment Gait Gait Assistance Required: Minimum Assistance,Moderate Assistance Distance (Feet) 30 Able to Maintain Weight Bearing Status Yes During Gait Assistive Devices Assistive Device Gait Belt,Front Wheeled Walker Orthotic/Prosthetic Devices or Brace: No Gait Deviations General Gait Pattern Antalgic,Decreased Stride Length,Decreased Feet Clearance,Step-to Gait Factors Limiting Gait Function Factors Limiting Gait Function Decreased Activity Tolerance, Decreased Strength,Difficulty Following Directions,Limited Range of Motion,Pain,Poor Balance,Poor Safety Awareness PT-Balance Assessment Sitting Balance and Reactions Static Sitting Balance Ability Good Dynamic Sitting Balance Ability Good Standing Balance and Reactions Static Standing Balance Ability Fair Dynamic Standing Balance Ability Fair Device Used FWW M5 PT-IP Objective Assessments Start: 10/07/22 15:40 Freq: NEEDED Status: Active Protocol: Document 10/07/22 13:40 AB (Rec: 10/07/22 15:55 AB [id number]) Orientation Orientation/Cognition Level of Alertness Alert Orientation Name,Place,Situation Safety Awareness Decreased Safety Awareness Memory Description No Deficits Noted Gross Range of Motion Lower Extremity ROM Assessment Right Impaired Impairments R knee flexion: ~ 50 deg Strength Lower Extremity Strength Assessment Right Impaired Hip 3+/5 Knee 3+/5 Sensation Assessment Sensation Gross Sensation WNL Muscle Tone Muscle Tone WNL Yes M6 PT-IP Treatment Start: 10/07/22 15:40 Freq: NEEDED Status: Active Protocol: Document 10/07/22 13:40 AB (Rec: 10/07/22 15:55 AB [email or web address]) Physical Therapy Treatment Exercises Exercises Heel Slides Education Education Provided Precautions,Weight Bearing Status,Post-Op Packet,Safety M7 PT-IP Assessment and Plan Start: 10/07/22 15:40 Freq: NEEDED Status: Active Protocol: Document 10/07/22 13:40 AB (Rec: 10/07/22 15:55 AB [email or web address]) PT Summary Assessment and Plan Potential Rehabilitation Potential Good Status of Condition at Evaluation Evolving Summary Impairments Pain,ROM,Strength,Balance, Coordination,Sensation,Tone, Cognition,Bed Mobility, Transfers,Gait,Activity Tolerance Assessment Summary pt s/p R TKA and just had surgery this morning. pt requiring min to mod A with mobiltiy and will likely progress during hospital stay. caregiver training set up for tomorrow at 9 am. will continue to assess. Goals Bed Mobility Goal Independent Transfer Goal Independent,Front Wheeled Walker Gait Goal Independent,Front Wheel Walker Gait Distance 150 Other Goals up/down 3 steps B rails I Days to Meet Goals 5 Frequency of Treatment Frequency Of Treatment Twice a Day Treatment Plan Physical Therapy Treatment Plan Bed Mobility Training,Transfer Training,Gait Training, Therapeutic Exercise,Balance Retraining,Post Op Education, Discharge Planning,Hot or Cold Pack,Neuromuscular Re-ed, Coordination Retraining,Manual Therapy Weight Bearing Status Weight Bearing Status Weight Bear as Tolerated Allowed Weight Bearing Amount (enter % RLE WBAT or #) (%) Recommendations To Nursing Amount of Assist Needed 1 Person Assist Discharge Recommendations PT Discharge Recommendations Home with Assistance, Outpatient PT Transportation Needs at Discharge Private Vehicle
[2022-10-07] MEDS: VIT C/E/ZN/COPPR/LUTEIN/ZEAXAN CAPSULE 1 CAP PO (16:32)
[2022-10-07] MEDS: OXYCODONE IR 5 MG TABLET PO ×2 (16:33→20:13)
[2022-10-07] MEDS: DOCUSATE 100 MG CAPSULE PO (20:13)
[2022-10-07] MEDS: ASPIRIN EC 81 MG TABLET PO (20:13)
[2022-10-07] MEDS: ATORVASTATIN 20 MG TABLET 10 MG PO (20:13)
[2022-10-08] VITALS: BP 126/54; PULSE 64; RESP 18; TEMP 36.2; O2SAT 97
[2022-10-08] MEDS: CEFAZOLIN 2 GM/100 ML PREMIX 100 ML IV (01:36)
--- NOTE | 2022-10-08 03:52 | PC.NURSE ---
Pt resting thru noc. Med at 2300 & 0400 for discomfort w/good relief. Dsg to Right knee CDI HL MAGGIE intact/patent. Call light w/in reach, bed alarm on for pt safety. Continue w/plan of care.
[2022-10-08 04:05] VITALS: BP 132/57; PULSE 66; RESP 18; TEMP 36.1; O2SAT 98
[2022-10-08] MEDS: IBUPROFEN 400 MG TABLET PO ×2 (04:05→08:47)
[2022-10-08] MEDS: OXYCODONE IR 5 MG TABLET PO (04:05)
[2022-10-08 06:41] LABS: Hematocrit 31.5 % (36-46); Hemoglobin 10.3 g/dL (12.0-16.0)
--- NOTE | 2022-10-08 07:29 | PM.DS.1 ---
History of Present Illness History of Present Illness Date Patient Seen: 10/08/22 Time Patient Seen: 07:29 Chief complaint: TKA Right *OPB* Narrative: Operative Date/Time/Diagnoses Date of procedure: 10/07/22 Time of procedure: 09:40 Pre-op diagnosis: Right knee osteoarthritis Post-op diagnosis: same Procedure & Clinicians Procedure: Right total knee replacement Same procedure as scheduled: Yes Indications: The patient has had progressively worsening right knee pain with radiographic changes consistent with arthritis. Non-operative management has failed and the patient has requested total knee replacement. The risks, benefits and alternatives to surgery were discussed with the patient prior to proceeding. Risks discussed included, but were not limited to, failure to relieve pain, stiffness, infection, nerve damage, deep venous thrombosis, pulmonary embolism, stroke, coma, heart attack, permanent paralysis and , as well as the potential need for eventual revision of the prosthetic. Surgeon: Festus Evans Landscape Management Technician: Kristen Pagan Click Yes if Unassisted: No Anesthesia Type: General, Spinal and Local Operative Notes Findings: Severe medial and patellofemoral osteoarthritis with relative preservation of the lateral compartment. Closure Type: primary Specimen(s): none sent Prosthetic devices, grafts, tissues, transplants, or devices: Implants used in this procedure were manufactured by the [employer] and included the BCS II Journey total knee replacement with a size 3 right cobalt chromium femur, a size 2 non porous tibial base plate, an 11 mm cross-linked polyethylene tibial insert and a 29 mm oval Amy II patella. Applied: implant(s) Estimated Blood Loss (mL): 50 Blood products transfused: none Tourniquet time (min): 57 Discharge Providers Provider Discharge Date: 10/08/22 Primary care physician: Bonnie Burkett MD Consults: 10/07/22 10:35 Consult to Discharge Planning Routine Comment: Consult to Physical Therapy Evaluate & Treat Comment: Physician Instructions: postop TKA protocol Discharge provider: Kristen Pagan PA-C Summary Hospital Course Discharge Diagnosis: Right knee osteoarthritis, s/p right total knee arthroplasty. Hospital Course: Ms Webster's hospital course was unremarkable. On POD# 1, she was feeling well and wanted to go home. She had been doing leg exercises in bed throughout the night. She was eating and voiding without difficulty and her pain was well-controlled with oral medication. Her only complaint was of global itching. She was evaluated by PT throughout her stay and felt to be safe for discharge home. Exam Vital Signs (past 8 hours): - 10/08/22 00:00 10/08/22 04:05 Temperature 97.2 F L 97 F L Pulse Rate 64 66 Respiratory Rate 18 18 Blood Pressure 126/54 L 132/57 L Pulse Oximetry 97 98 Oxygen Flow Rate 0 0 Oxygen Delivery Method Room Air Oxygen Flow Rate 0 Narrative Exam Narrative: 5/5 strength in hip flexors, quadriceps, hamstrings, DF, PF, EHL; sensation to light touch intact throughout RLE. Calf soft, compressible, nontender and without palpable cords or masses. Aquacel dressing CDI. Objective Labs Result Diagrams: 10/08/22 05:13 Labs: Laboratory Results - last 24 hr 10/08/22 05:13 Hgb 10.3 L Hct 31.5 L PFSH Medical History (Updated 09/23/22 @ 14:21 by Liseth Garcia, RN) Bilateral knee pain COVID-19 virus infection (08/28/22) Headache, migraine Macular degeneration Obesity Osteoporosis Primary osteoarthritis of left knee Surgical History (Updated 09/23/22 @ 13:36 by Liseth Garcia, KATYA) H/O bilateral cataract extraction History of appendectomy History of arthroscopic knee surgery History of History of tonsillectomy and adenoidectomy History of total hysterectomy History of total left knee replacement (01/15/21) Social History household members: spouse Smoking Status: Former smoker alcohol intake: current Discharge Assessment & Plan Assessment and Plan Assessment: Right knee osteoarthritis, s/p right total knee arthroplasty Plan of Treatment: Discharge home. Pt has all postop meds at home, will add benadryl d/t itching. Outpt PT, follow up in office in 2 weeks. Discharge Plan Discharge Plan Patient Disposition: Home Discharge orders & Medications Discharge Orders: Discharge (Order); Ordered 10/08/22 Ordered By: Kristen Pagan Prescriptions: New diphenhydramine HCl [Benadryl] 25 mg capsule 25 mg PO TID PRN (Reason: itching) Qty: 30 1RF Continued ibuprofen 400 mg tablet 800 mg PO BEDTIME simvastatin 20 mg Tablet 20 mg PO BEDTIME PreserVision AREDS [id number] Capsule 1 cap PO QPM risedronate 150 mg Tablet 150 mg PO QMONTH Rx Instructions: Take 1 tablet by oral route every month on the same date; Take with a full glass of water and remain in an upright position Follow up/Referrals: Bonnie Burkett MD [Primary Care Provider] - Festus Evans MD [Physician] - As previously scheduled (Follow up with Dr Evans on 10/19/2022 @ 10:30 am at [facility] office in [place].) Diet/Activity/Treatments Diet: Diet as Tolerated Activity: Walk frequently! Cold/Heat Therapy: Ice to knee as needed for pain. Skin/Wound/Dressing Care Report to your healthcare provider any signs of infection, such as:: chills, fever, night sweats, unusual drainage and unusual redness Dressing: May remove JORGE wrap and shower on Oct 10. Leave Aquacel dressing in place until follow up in office. No bathing or otherwise soaking incision. Call office if Aquacel becomes saturated inside. Visit Report/Discharge Packet Instructions: DI for Knee Replacement Stand Alone Forms: Surgery Discharge Discharge Data Primary Care Provider: Bonnie Burkett Attending Provider: Festus Evans
[2022-10-08 08:00] VITALS: BP 104/52; PULSE 60; RESP 18; TEMP 36.5; O2SAT 98
[2022-10-08] MEDS: DOCUSATE 100 MG CAPSULE PO (08:48)
[2022-10-08] MEDS: ASPIRIN EC 81 MG TABLET PO (08:48)
[2022-10-08] MEDS: OXYCODONE IR 10 MG TABLET PO (08:48)
--- NOTE | 2022-10-08 09:24 | CM.DANOTE ---
Patient is a 77 yo female who was admitted on 10/07/22 for RTKA. Pt has [facility] for insurance and her PCP is Bonnie Burkett. EMR was reviewed. Per Ortho, pt is medically stable to d/c home today after PT and no identified barriers for discharge. Per PT, recommending d/c to home with spouse assist and outpt PT and CG training set up with spouse today at 0900. SW met bedside with pt and spouse and explained role and they confirm both have had knee surgeries before and have DME at home and remember the precautions. Pt states she and spouse live in [facility] [place] and are active and independent at baseline and typically does not use DME. Pt denies any hx of HH or SNF and states she is established with outpt PT for the past 6 weeks prior to surgery and has an appointment set up for next week already and both pt and spouse feel comfortable with d/c to home later this morning after CG training completed. Pt states she also has two adult sons that live nearby and can assist if needed, one in [place] and one in [place]. Plan: SW to follow for plan of d/c home later this morning via spouse POV after final CG training complete. No SW needs at this time. GUSTAVO Sauer Discharge Planning/Care Management Advanced directive, confirm from FAMILY Start: 10/07/22 11:53 Freq: Q24H Status: Active Protocol: Document 10/07/22 16:44 AKP (Rec: 10/07/22 16:45 AKP [id number]) Advance Directive, confirm on record Time 16:45 Person contacted pt to bring in/spouse to bring in Copy received No CM Discharge Assessment Start: 10/08/22 09:20 Freq: Status: Active Protocol: Document 10/08/22 09:20 BF (Rec: 10/08/22 09:24 BF [id number]) Discharge Planning Assessment Assigned Car Oiler GUSTAVO Sesay DPOA/Assigned Designee Name Spouse Addy Contact Information [phone] Advance Directives? No: has not yet filled out. Advance Directives on File No History Provided By Patient,Significant Other, Medical Record Has Patient been admitted in last 30 No days? Prior Living Arrangements House Household Members spouse Type of transporation used prior to Drives own vehicle admit Independent with ADL's Yes Is patient alert and oriented? Yes Caregiver for Another No Community Services used prior to Physical Therapy admission: Comment Established with outpt PT for the past 6 weeks, has apt scheduled for next week DME Already Rented / Owned FWW / Walker,Cane Patient/Family Preference OP PT Therapy Barriers to Discharge No Discharge Plan Home Community Services Physical Therapy Transportation Arrangement spouse bedside and will transport Referrals Initiated None needed Whiteboard Updated in Patient Room with Yes name and ext. # of Car Oiler Review Status In Process Please Provide Date Initial DC 10/08/22 Assessment Was Performed Next Review Type Continued Stay Review Pre-Anesthesia Assessment Start: 09/23/22 13:30 Freq: Status: Active Protocol: Document 09/23/22 13:30 CAB (Rec: 09/23/22 14:37 CAB [id number]) Pre-Anesthesia Assessment Preferred Name Jane or Dina Patient Information Reviewed Via Phone Assessment Assessment Completed With Patient Comment Labs/ECG done w/PCP, not here, COVID screen @ 10/06/22 Primary Care Provider Bonnie uBrkett Seen Specialist in Last 12 Months Yes Specialist Seen Opthamologist/Print Binding And Finishing Worker, Orthopedist Primary Language Danish Preferred Language Danish Software Project Engineer Required No Comment Also speaks Paragu[place] Height 147.32 cm Weight 77.111 kg Body Mass Index (BMI) 35.5 Hearing Ability Hearing Impaired Visual Assist Glasses Barriers to Learning Auditory,Visual Hx Anesthesia Reactions No Hx Family Anesthesia Reaction No Hx Malignant Hyperthermia No Hx Blood Transfusions No Hx Blood Transfusion Reaction No Anesthesia Review Requested No Breastfeeding Peer Counselor No alcohol intake current alcohol intake frequency 0-2 drinks per day Smoking Status Former smoker Tobacco type cigarettes how long ago did patient quit smoking 58 years ago Substance Use Type does not use Pain Present Pain Reported Musculoskeletal Symptoms Abnormal Gait,Difficulty Walking,Joint Pain History of Falling (Recent or History of Yes ) Patient is completely paralyzed or No completely immobile Mental Status Oriented to own ability Comment Impaired balance Is patient on oxygen? No Does patient have OLIVARES/SOB No Hx Sleep Apnea No CPAP/BIPAP use not prescribed Currently Taking a Beta Lul No Can You Climb a Flight of Stairs Without Yes SOB Hx Chest Pain No Hx SOB No Hx Syncope or Dizziness No Anti-Coagulant Therapy No Has a Production Gear Cutter No Cardiac Testing No Hx Pacemaker/ICD No Pacemaker Rep Required? No Cardiac Clearance Received No Diet Type At Home Regular Dysphagia No Gastrointestinal Symptoms Reflux Bladder Pattern Incontinent, Stress Urinary Catheter Present No Hx Urinary Self Catheterization No Diabetes No Patient No Lactating No Hx Drug Resistant Organism No Presence of External or Internal Medical Yes: Bilateral IOLs, Left knee Devices prosthesis Have you had any close contact with Yes someone diagnosed with COVID-19? Received a COVID vaccine? Yes: Has not had any booster Comment COVID-19 infection 08/28/22- mild symptoms x 2 weeks, reviewed w/Dr. Hurt Marital Status Lives With spouse Current Living Arrangements House Number of Floors (Floors) One Floor Support System Family,Friend(s),Spouse Patient Discharge Plan Description Return Home Comment Pt advised possible same day surgery per surgeon Feels Safe in Current Environment Yes Been Physically Hurt or Threatened By a No Person in Current Environment Do you have thoughts of harming yourself None or others? Are you currently considering suicide? No Do you have a plan to hurt yourself or No Plan others? Do You Have Any Spiritual Beliefs That No May Affect Your HC Choices? Do You Have Any Cultural Practices That No May Affect Your HC Choices? Comment Scientologist Who Can We Speak to About Patient's Care Family, friends Identifying Code for Release of Patient Declines to issue Information Health Care Proxy/Next of Kin - (Angel) Addy Eleanor Health Care Proxy Emergency Contact Name - (Angel) Addy Eleanor Emergency Contact Advance Directives? No Power of Timber Appraiser No PAC Instructions Do not shave/clip surgical site,Durable medical equipment ,Medications to take/avoid, Nasal antibiotic,No ETOH/ petroleum product on skin DOS, NPO,Pre-surgical wash,Sensory aids,Sturdy shoes/comfortable clothes,Do not bring valuables and remove jewelry
--- NOTE | 2022-10-08 11:23 | PT.IPTN ---
Addendum entered and electronically signed by Gela Bowman PTA 10/08/22 19:00: Pt reports has a recliner that may sleep in for few days. Original Note: Current Diagnoses Unilateral primary osteoarthritis, right knee (10/07/22) Surgery Performed Operation Date: 10/07/22 07:45 Actual Procedures p Total Knee Arthroplasty(Right) - Festus Evans MD Physical Therapy Treatment Note M2 PT-IP Current Condition Start: 10/07/22 15:40 Freq: NEEDED Status: Discharge Protocol: Document 10/08/22 10:43 SP (Rec: 10/08/22 18:57 SP [id number]) Physical Therapy Current Condition Current Condition Evaluation Date 10/07/22 Treatment Diagnosis s/p R TKA; difficulty in walking Onset Date 10/07/22 M3 PT-IP Subjective Start: 10/07/22 15:40 Freq: NEEDED Status: Discharge Protocol: Document 10/08/22 10:43 SP (Rec: 10/08/22 18:57 SP [id number]) Subjective Physical Therapy Visit Type Type Treatment Note Visit Start Time 10:43 Visit Stop Time 11:23 Total Visit Minutes 40 Notes Vitals: seated in chair: 113/42 HR 64 SaO2 98% on RA completed CGT including donning GB and all assist required throughout tx. Number of [employer] Visits 1 Physical Therapy Visit Comments Patient Comments Pt initially requested return later in am due to increased pain. Agreeable to PT when returned. Patient Goals Return home with to assist her, already set up with outpatient therapy next week. Therapy Pain Assessment Location Right Knee Intensity 6 Scale Used 3/10 at rest, 6/10 with mobility Description With Movement Pain Behaviors Facial Grimacing,Wincing Pain Management Techniques Apply Cold,Distraction, Modification of Treatment,Re- positioning,Timing of Activity with Medications M4 PT-IP Mobility and Gait Start: 10/07/22 15:40 Freq: NEEDED Status: Discharge Protocol: Document 10/08/22 10:43 SP (Rec: 10/08/22 18:57 SP [id number]) PT-Transfer Assessment Sit to and From Stand Sit to and from Stand Contact Guard Assistance, Minimal Assistance,1 Person Assistance,Use of Upper Extremities Equipment Transfer Assistive Device Gait Belt,Front Wheeled Walker Orthotic/Prosthetic Devices or Brace: No Transfers Transfer Destination Toilet Transfer Technique ambulated Transfer Ability Level of Assist Contact Guard Assistance, Minimal Assistance,1 Person Assistance,Use of Upper Extremities Comments Mobility Comments Pt up in chair when arrived, states has been doing her ex in bed. She stated improved less pain when returned later am for mobilitiy. [employer] lowered chair leg rests while pt requested support her RLE into flexion due to pain, Scoot to EOchair SBA. donned GB in sitting. Sit>stand CGA/ Min A w/ FWW, further distance gait into hallway w/c 20 ft CGA, good back step/reach back chair arms sit. Wheeled down to stairs. Pt complete ascend/ descend 3 stairs using BHR cue x1 intially for proper patterning ascend LLE/ descend RLE CGA/Min A via , gait 60 ft w/ FWW w/c follow before requested sit w/c, improved R knee flexion/ DF during swing phase w/ cues, step to patterning at this time. Discussed BUE WB on FWW needed support RLE and stop stand rest if needed for UE rest break. Wheeled to room. STS, gait to chair, stand>sit SBA. [employer] elevated chair leg rests and provide CP for R knee. Pt is ok to return home with assist her and set up with outpt therapy next week. Gait Assessment Gait Gait Assistance Required: Standby Assistance,Contact Guard Assist Distance (Feet) 80 Able to Maintain Weight Bearing Status Yes During Gait Assistive Devices Assistive Device Gait Belt,Front Wheeled Walker Orthotic/Prosthetic Devices or Brace: No Gait Deviations General Gait Pattern Antalgic,Decreased Stride Length,Decreased Feet Clearance,Step-to Gait Factors Limiting Gait Function Factors Limiting Gait Function Decreased Activity Tolerance, Decreased Strength,Limited Range of Motion,Pain Comments Gait Comments see mobility comments. Stair Climbing Assessment Evaluation Level of Assist On Stairs Contact Guard Assistance, Minimal Assistance,1 Person Assistance Devices Stair Climbing Assistive Devices Left Railing,Right Railing Technique/Endurance Stair Climbing Direction Ascend and Descend Stair Climbing Technique Step to Step Number of Steps Climbed 3 Stair Climbing Set # Repetitions (reps) 1 Comments Stair Climbing Comments see mobility comments, heavy BUE on rails, quick LLE transition/ RLE stance time, stable RLE with cue quad facilitation awareness. PT-Balance Assessment Sitting Balance and Reactions Static Sitting Balance Ability Good Dynamic Sitting Balance Ability Good Standing Balance and Reactions Static Standing Balance Ability Fair Dynamic Standing Balance Ability Fair Device Used FWW M5 PT-IP Objective Assessments Start: 10/07/22 15:40 Freq: NEEDED Status: Discharge Protocol: Document 10/07/22 13:40 AB (Rec: 10/07/22 15:55 AB [id number]) Orientation Orientation/Cognition Level of Alertness Alert Orientation Name,Place,Situation Safety Awareness Decreased Safety Awareness Memory Description No Deficits Noted Gross Range of Motion Lower Extremity ROM Assessment Right Impaired Impairments R knee flexion: ~ 50 deg Strength Lower Extremity Strength Assessment Right Impaired Hip 3+/5 Knee 3+/5 Sensation Assessment Sensation Gross Sensation WNL Muscle Tone Muscle Tone WNL Yes M6 PT-IP Treatment Start: 10/07/22 15:40 Freq: NEEDED Status: Discharge Protocol: Document 10/08/22 10:43 SP (Rec: 10/08/22 18:57 SP [id number]) Physical Therapy Treatment Exercises Exercises Ankle Pumps,Quad Sets,Heel Slides,Seated Knee Flexion/ Extension Education Education Provided Precautions,Weight Bearing Status,Post-Op Packet,Safety M7 PT-IP Assessment and Plan Start: 10/07/22 15:40 Freq: NEEDED Status: Discharge Protocol: Document 10/08/22 10:43 SP (Rec: 10/08/22 18:57 SP [id number]) PT Summary Assessment and Plan Potential Rehabilitation Potential Good Status of Condition at Evaluation Evolving Summary Impairments Pain,ROM,Strength,Balance, Coordination,Sensation,Tone, Cognition,Bed Mobility, Transfers,Gait,Activity Tolerance Progress Towards Goals Progressing Toward Goals,Slow Progress due to Pain,Slow Progress due to Activity Tolerance Assessment Summary Pt slow and needed time but improved mobility with pain med control. CG/ Min A during transfers/gait w/ FWW step to patterning progressed semi stagger patterning with distance, 3 step stair mgt BHR CG/ Min step to patterning. Pt set up with outpt therapy, is able to return home with / assist available when medically cleared. Goals Bed Mobility Goal Independent Transfer Goal Independent,Front Wheeled Walker Gait Goal Independent,Front Wheel Walker Gait Distance 150 Other Goals up/down 3 steps B rails I Days to Meet Goals 5 Frequency of Treatment Frequency Of Treatment Twice a Day Treatment Plan Physical Therapy Treatment Plan Bed Mobility Training,Transfer Training,Gait Training, Therapeutic Exercise,Balance Retraining,Post Op Education, Discharge Planning,Hot or Cold Pack,Neuromuscular Re-ed, Coordination Retraining,Manual Therapy Other Recommendations and Next Treatment Post op RLE ex, measure ROM, Focus transfers/ gait w/FWW receiprocal stepping further distance, stairs B HRs. Weight Bearing Status Weight Bearing Status Weight Bear as Tolerated Allowed Weight Bearing Amount (enter % RLE WBAT or #) (%) Recommendations To Nursing Amount of Assist Needed Standby Assistance,1 Person Assist Discharge Recommendations PT Discharge Recommendations Home with 03/05 Assist Available,Outpatient PT Transportation Needs at Discharge Private Vehicle
[2022-10-08] MEDS: ACETAMINOPHEN 325 MG TABLET 650 MG PO (11:29)
--- NOTE | 2022-10-08 11:55 | PC.NURSE ---
Patient cleared by physical therapy for discharge to home with her . They state they have follow up appointments scheduled, as well as physical therapy appointments and have all we need. Aquacel with nitin wrap remain intact and in place to right knee. Discharge instructions reviewed with patient and her and they have no further questions or concerns.
== END 2022-10-08 11:50 | disposition home or self-care (01) ==
LOC: OR 06:13 → AC 06:13
PROVIDERS: PCP Family Medicine; Referring Provider Orthopaedic Surgery; Visit Provider Orthopaedic Surgery
PROC: 0SRC0JZ Replacement of Right Knee Joint with Synthetic Substitute, Open Approach (ICD-10-PCS; CPT 27447; principal; 2022-10-07 07:45)
DX: M17.11 Unilateral primary osteoarthritis, right knee (principal)
CPT/HCPCS: 27447; 36415; 73560; 85014; 85018; 97116; 97162; 97530; C1776; C1713; C9290; J0690; J1100; J1170; J1885; J2250; J2270; J2405; J2704; J3010

== ENCOUNTER → 2025-02-14 11:43 | Outpatient (CLI) | payer OTHER, SELFPAY ==
[2022-10-07 11:39] VITALS: BMI 35.5
--- NOTE | 2025-02-14 11:45 | DI.CT.S_ITS ---
PROCEDURE: CT SINUS SCREEN WO CON INDICATIONS: Chronic cough, chronic allergic rhinosinusitis TECHNIQUE: Noncontrast 3.0 mm axial images acquired from the frontal sinuses to the mid-sella, with coronal and sagittal reformats. For radiation dose reduction, the following was used: automated exposure control, adjustment of mA and/or kV according to patient size. COMPARISON: None. FINDINGS: Image quality: There is artifact associated with the metallic hardware. Artifact from the metallic hardware is reduced by metal reconstruction algorithm. Maxillary Sinuses: No bony remodeling or destruction. Sinuses are clear. Ethmoid Air Cells: No bony remodeling or destruction. Sinuses are clear. Sphenoid Sinuses: No bony remodeling or destruction. Sinuses are clear. Frontal Sinuses: No bony remodeling or destruction. Sinuses are clear. The frontal sinuses are relatively poorly developed. Ostiomeatal Complexes: The ostiomeatal complexes are patent, yet they are constitutionally narrowed, with a right-sided Lorena cell. Miscellaneous: Visualized intra-orbital contents are normal. There are bilateral milo bullosa, right larger than left. There is moderate leftward is septal deviation. IMPRESSION: No significant active paranasal sinus disease is seen. Constitutionally narrowed ostiomeatal complexes. Bilateral milo bullosa can be seen, right larger than left, with moderate leftward nasal septal deviation. Dictated by: Scott Trejo M.D. on 02/14/2025 at 11:55 Approved by: Scott Trejo M.D. on 02/14/2025 at 11:57
--- NOTE | 2025-02-14 11:45 | DI.CT.S_ITS ---
PROCEDURE: CT CHEST HIGH RESOLUTION INDICATIONS: Chronic cough, rule out ILD TECHNIQUE: Noncontrast 1.0 and 5.0 mm thick contiguous axial sections from the pulmonary apex to the posterior costophrenic angles, with 7 mm thick coronal and sagittal MIP reformats. 1 mm thick dynamic expiratory images acquired through the upper, mid, and lower lungs. 1.0 mm thick axial sections acquired from the ryan to the posterior costophrenic angles in the prone end-inspiration position. For radiation dose reduction, the following was used: automated exposure control, adjustment of mA and/or kV according to patient size. COMPARISON: None. FINDINGS: Image quality: Diagnostic Lungs and pleura: Moderate diffuse parenchymal air trapping on expiratory images. No dense airspace disease or pleural effusions. There are mild peripheral reticular changes in the middle lobe, lingula, and bilateral lower lobes. No honeycombing is identified. No significant traction bronchiectasis. No changes seen on prone imaging Multiple small nodules are seen, the most notable nodules in the right superior right lower lobe with irregular borders, measuring 7 mm (2/156). Mediastinum, heart, and esophagus: Small hiatal hernia. Borderline enlarged heart size. Annular cardiac calcifications. No pathologic lymphadenopathy by size criteria. Chest wall and thyroid: Unremarkable Upper abdomen: Unremarkable upper abdomen Bones: There are degenerative changes. No aggressive appearing osseous abnormality. IMPRESSION: Mild peripheral fibrotic changes in the lower lobes and middle lobe/lingula. No honeycombing. There is also moderate diffuse parenchymal air trapping, indicating chronic bronchiolitis. ATS 2018 HRCT classification: Indeterminate for UIP ILD. Incidentally noted is 7 mm pulmonary nodule with irregular margins. A 3 month follow-up chest CT (high-resolution protocol not necessary) suggested to follow-up size. If persistent or enlarging, consider PET-CT. Other findings above. Dictated by: Khris Sesay M.D. on 02/14/2025 at 12:55 Approved by: Khris Sesay M.D. on 02/14/2025 at 13:01
== END ==
LOC: CT 11:44
PROVIDERS: PCP Nurse Practitioner Family; Referring Provider Internal Medicine; Visit Provider Internal Medicine
DX: R05.3 Chronic cough
CPT/HCPCS: 70486; 71250